=== PATIENT | female | born 1975 | race Caucasian/White ===

== ENCOUNTER 2017-12-13 12:32 | Outpatient (CLI) | payer BC | END 2017-12-13 12:33 | disposition home or self-care (01) | LOC: BICMAMMO 12:32 | PROVIDERS: ATTEND Student in an Organized Health Care Education/Training Program | DX: Z12.31 Encounter for screening mammogram for malignant neoplasm of breast (principal) | CPT/HCPCS: 77063; 77067 ==

== ENCOUNTER 2020-06-26 09:57 | Day surgery (SDC) | payer BC ==
[2020-06-25 14:53] VITALS: BMI 26.4
[2020-06-26] MEDS ORDERED: Dexamethasone 20 MG/5 ML VIAL ONE (09:59)
[2020-06-26] MEDS ORDERED: Ondansetron PF 4 MG/2 ML Vial ONE (09:59)
[2020-06-26] MEDS ORDERED: Ketorolac Tromethamine 30 MG/ML VIAL ONE (09:59)
[2020-06-26] MEDS ORDERED: Lidocaine 1% PF 5 ML VIAL ONE (09:59)
[2020-06-26] MEDS ORDERED: PROPOFOL 200 MG/20 ML VIAL ONE (09:59)
[2020-06-26] MEDS ORDERED: Lidocaine 1% w/Epinephrine 1:100K 20 ML VIAL ONE (11:01)
[2020-06-26] MEDS ORDERED: Bupivacaine PF 0.5% 30 ML VIAL ONE (11:01)
[2020-06-26] MEDS ORDERED: Fentanyl 100 MCG/2 ML VIAL ONE ×2 (11:02→13:41)
[2020-06-26] MEDS ORDERED: Midazolam HCl 2 mg/2 ml Vial ONE (11:20)
[2020-06-26] MEDS ORDERED: PROPOFOL 60 ML ONE (11:37)
[2020-06-26] MEDS ORDERED: HYDROcodone/Acetaminophen 5/325 mg Tablet ONE (14:52)
--- NOTE | 2020-06-27 12:59 | OP ---
DATE OF PROCEDURE: 06/26/2020 PREOPERATIVE DIAGNOSIS: Vaginal cuff dehiscence. POSTOPERATIVE DIAGNOSIS: Vaginal cuff dehiscence. PROCEDURE PERFORMED: Exam under anesthesia, repair of vaginal cuff. ANESTHESIA: General LMA. BOARD ATTENDANT: Juliana Jarquin PA-C ESTIMATED BLOOD LOSS: 10 mL. URINE OUTPUT: 200 mL, clear urine at the beginning. FINDINGS: On exam under anesthesia, a 3 cm defect on the left side of the vaginal cuff was present. The suture material was removed from this. It appeared that the suture had been compromised and was cut. The entire cuff was oversewn with 2-0 Vicryl. There was normal vaginal mucosa. There was no erythema or induration of the vaginal cuff. There was no fluid collection superior to the vaginal cuff opening. There were no apparent intestinal objects immediately beneath the vaginal cuff. DESCRIPTION OF PROCEDURE: Patient was taken to the operating room. General anesthesia was obtained without difficulty. Patient was prepped and draped in a sterile fashion in a dorsal lithotomy position. The bladder was drained with a red rubber catheter. A speculum was placed in the vagina. The vaginal cuff was grasped with 2 Allis clamps in the anterior and posterior surfaces and the defect was noted. The defect was then palpated after removing the speculum and the defect opened up just slightly more. The suture material was then cut and removed out of the vagina. The right side of the vaginal cuff was examined and placed under some tension and this was well approximated. The left-most apex of the vaginal cuff was also approximated as well. 0 Vicryl was used to reapproximate the vaginal cuff in a [id number] fashion. The entire length of the cuff was reapproximated and reinforced and all needles were removed out of the vagina. The vagina was hemostatic. Irrigation was performed of the vaginal cuff and suctioned. All instruments were removed out of the vagina. Patient tolerated the procedure well. Sponge, lap, and needle counts correct x2. Patient was taken to recovery room in stable condition. Patient received Ancef 2 g prior to the procedure. Job ID: [id number]
== END 2020-06-26 15:15 | disposition home or self-care (01) ==
LOC: SDC 09:57
PROVIDERS: ATTEND Student in an Organized Health Care Education/Training Program
PROC: 0UQG7ZZ Repair Vagina, Via Natural or Artificial Opening (ICD-10-PCS; principal; 2020-06-26)
DX: T81.31XA Disruption of external operation (surgical) wound, not elsewhere classified, initial encounter (principal); Z79.899 Other long term (current) drug therapy; Z90.710 Acquired absence of both cervix and uterus
CPT/HCPCS: J0690; J1100; J1885; J2250; J2405; J2704; J3010; S0020